=== PATIENT | female | born 1995 | race Caucasian/White ===

== ENCOUNTER 2018-08-30 16:34 | Emergency (ER) | payer BC ==
[2018-08-30 16:38] VITALS: BP 141/76
--- NOTE | 2018-08-30 16:43 | ED Physician Documentation ---
History of Present Illness - Stated complaint Stated Complaint: L EAR PX - Chief complaint Chief Complaint: Heent - History obtained from History obtained from: Patient - History of Present Illness Pain level max: 3 PD PAST MEDICAL HISTORY - Present Medications Home Medications: Ambulatory Orders Medication Instructions Recorded Confirmed Levothyroxine [Synthroid] 112 mcg PO QDAC 08/30/18 08/30/18 - Allergies Allergies/Adverse Reactions: Allergies Allergy/AdvReac Type Severity Reaction Status Date / Time minocycline [From Solodyn] Allergy Hives Verified 08/30/18 16:38 - Social History Does the pt smoke?: No Smoking Status: Never smoker Does the pt drink ETOH?: Yes Does the pt have substance abuse?: No Results - Vitals Vitals: Vital Signs - 24 hr 08/30/18 16:37 Temperature 36.4 C L Heart Rate 73 Respiratory 18 Rate Blood Pressure 141/76 H O2 Saturation 97 Oxygen O2 Source Room air
--- NOTE | 2018-08-30 16:55 | ED Physician Documentation ---
PD HPI HEENT FB - Chief complaint Chief Complaint: Heent - History obtained from History obtained from: Patient - History of Present Illness Timing - onset: Last night (Left earache with decreased hearing since last night, no URI symptoms.) Review of Systems Constitutional: reports: Reviewed and negative Nose: denies: Rhinorrhea / runny nose, Congestion Throat: denies: Sore throat PD PAST MEDICAL HISTORY - Present Medications Home Medications: Ambulatory Orders Medication Instructions Recorded Confirmed Levothyroxine [Synthroid] 112 mcg PO QDAC 08/30/18 08/30/18 - Allergies Allergies/Adverse Reactions: Allergies Allergy/AdvReac Type Severity Reaction Status Date / Time minocycline [From Solodyn] Allergy Hives Verified 08/30/18 16:38 - Social History Does the pt smoke?: No Smoking Status: Never smoker Does the pt drink ETOH?: Yes Does the pt have substance abuse?: No PD ED PE NORMAL - Vitals Vital signs reviewed: Yes - General General: Alert and oriented X 3, No acute distress - HEENT HEENT: Other (The left ear canal is occluded by cerumen, after earwax removal the TM was normal.) - Neck Neck: Supple, no meningeal sign, No bony TTP - Neuro Neuro: Alert and oriented X 3, Normal speech Results - Vitals Vitals: Vital Signs - 24 hr 08/30/18 16:37 Temperature 36.4 C L Heart Rate 73 Respiratory 18 Rate Blood Pressure 141/76 H O2 Saturation 97 Oxygen O2 Source Room air Procedures - General procedure General procedure: Using syringe irrigation the left ear canal was cleared of cerumen with resolution of her symptoms. Departure - Departure Disposition: 01 Home, Self Care Clinical Impression: Impacted cerumen of left ear Condition: Good Record reviewed to determine appropriate education?: Yes Instructions: Earwax Impacted Comments: Your blood pressure was elevated today on check into the emergency department. This does not mean that you have hypertension, it is a common phenomenon to come to the emergency department and have elevated blood pressure. I recommend that you see your primary care physician within the week to have it rechecked when you are feeling better.
== END 2018-08-30 17:02 | disposition home or self-care (01) ==
LOC: ED 16:34
DX: H61.22 Impacted cerumen, left ear (principal); R03.0 Elevated blood-pressure reading, without diagnosis of hypertension
CPT/HCPCS: 69210; 99282